=== PATIENT | male | born 1950 | race Caucasian/White ===

== ENCOUNTER 2021-11-19 18:35 | Inpatient (IN) | payer MEDICARE ==
[~2021-11-19] VITALS: Ht 170.2 cm; Wt 66.2 kg
[2021-11-19] MEDS ORDERED: KETOROLAC TROMETHAMINE 30 MG/ML VIAL IV STA (18:39)
[2021-11-19] MEDS ORDERED: ONDANSETRON HCL INJ 2MG/ML 2ML 2 MG/ML VIAL IV STA (18:39)
[2021-11-19 19:13] LABS: BASOPHILS % 0.2 % (0.0-1.0); EOSINOPHILS # (AUTO) 0.1 (0.0-0.4); EOSINOPHILS % 1.3 % (0.0-6.0); HEMATOCRIT 38.8 % (38.2-49.6); HEMOGLOBIN 12.8 g/dL (14.0-18.0); LYMPHOCYTES # (AUTO) 0.9 (1.0-3.2); LYMPHOCYTES % 14.8 % (18.0-39.1); MEAN CORPUSCULAR HEMOGLOBIN 31.6 pg (28-32); MEAN CORPUSCULAR VOLUME 95.8 fL (81-99); MONOCYTES # (AUTO) 0.8 (0.2-0.8); MONOCYTES % 12.3 % (4.4-11.3); NEUTROPHILS # (AUTO) 4.5 (2.1-6.9); NEUTROPHILS % 71.2 % (38.7-80.0); PLATELET COUNT 201 x10e3/uL (140-360); RED BLOOD COUNT 4.05 x10e6/uL (4.3-5.7); RED CELL DISTRIBUTION WIDTH 12.2 % (11.7-14.4)
[2021-11-19 19:31] LABS: ALBUMIN 3.7 g/dL (3.5-5.0); ALBUMIN/GLOBULIN RATIO 0.9 (0.8-2.0); CALCIUM 9.1 mg/dL (8.4-10.2); CREATININE, SERUM 3.53 mg/dL (0.72-1.25)
[2021-11-19 19:53] LABS: CLARITY,URINE CLEAR (CLEAR); COLOR,URINE YELLOW (YELLOW); LEUKOCYTE ESTERASE ,URINE NEGATIVE (NEGATIVE); NITRITE,URINE NEGATIVE (NEGATIVE); PROTEIN,URINE DIPSTICK 1+ (NEGATIVE)
[2021-11-19 19:54] LABS: KETONES,URINE 2+ (NEGATIVE); URINE UROBILINOGEN 0.2 mg/dL (0.2 - 1)
[2021-11-19 20:04] LABS: BACTERIA,URINE MODERATE /HPF
[2021-11-19] MEDS: SODIUM CHLORIDE 0.9% 1000ML 1,000 ML IV SCH ×2 (20:17→20:34)
[2021-11-19] MEDS ORDERED: CLONIDINE HCL 0.1 MG TAB ONE (20:31)
[2021-11-19 20:32] LABS: BILIRUBIN,DIRECT 0.3 mg/dL (0.0-0.5)
[2021-11-19] MEDS: CLONIDINE HCL 0.1 MG TAB PO PRN (20:35)
[2021-11-19] MEDS: TAMSULOSIN HCL 0.4 MG CAP PO SCH (21:00)
[2021-11-19] MEDS ORDERED: CLONIDINE HCL 0.1 MG TAB PO SCH (21:00)
[2021-11-19 21:30] VITALS: BP 178/75
[2021-11-20] VITALS (9 sets, daily range): BP systolic 145–235; BP diastolic 68–91
[2021-11-20] MEDS ORDERED: CARVEDILOL12.5 MG PO (01:22)
[2021-11-20] MEDS ORDERED: DIOVAN160 MG PO (01:23)
[2021-11-20] MEDS ORDERED: HYDROCHLOROTH12.5 MG PO (01:28)
[2021-11-20] MEDS ORDERED: PLAVIX75 MG PO (01:30)
[2021-11-20] MEDS ORDERED: ACETAMINOPHEN/COD PO (01:41)
[2021-11-20] MEDS ORDERED: TAMSULOSIN PO (01:41)
[2021-11-20] MEDS: Morphine 4mg INJECTION 4 MG/ML INJ IV PRN ×2 (03:35→10:52)
[2021-11-20] MEDS: ONDANSETRON HCL INJ 2MG/ML 2ML 2 MG/ML VIAL IV PRN ×2 (03:37→10:51)
[2021-11-20 05:00] LABS: BASOPHILS % 0.2 % (0.0-1.0); EOSINOPHILS # (AUTO) 0.1 (0.0-0.4); EOSINOPHILS % 1.9 % (0.0-6.0); HEMATOCRIT 37.6 % (38.2-49.6); HEMOGLOBIN 12.1 g/dL (14.0-18.0); LYMPHOCYTES # (AUTO) 0.8 (1.0-3.2); LYMPHOCYTES % 15.6 % (18.0-39.1); MEAN CORPUSCULAR HEMOGLOBIN 30.6 pg (28-32); MEAN CORPUSCULAR HGB CONC 32.2 g/dL (31-35); MEAN CORPUSCULAR VOLUME 95.2 fL (81-99); MONOCYTES # (AUTO) 0.7 (0.2-0.8); MONOCYTES % 13.7 % (4.4-11.3); NEUTROPHILS # (AUTO) 3.6 (2.1-6.9); NEUTROPHILS % 68.2 % (38.7-80.0); PLATELET COUNT 179 x10e3/uL (140-360); RED BLOOD COUNT 3.95 x10e6/uL (4.3-5.7); RED CELL DISTRIBUTION WIDTH 12.2 % (11.7-14.4)
[2021-11-20 05:22] LABS: ANION GAP 21.2 mmol/L (8-16); CALCIUM 8.3 mg/dL (8.4-10.2); CREATININE, SERUM 3.02 mg/dL (0.72-1.25); POTASSIUM 4.2 mmol/L (3.5-5.1)
[2021-11-20] MEDS ORDERED: VALSARTAN 160 MG TAB PO SCH (09:00)
[2021-11-20] MEDS: CLONIDINE HCL 0.1 MG TAB PO PRN (10:49)
[2021-11-20] MEDS ORDERED: HYDRALAZINE HCL 20 MG/ML VIAL IV PRN (11:15)
[2021-11-20] MEDS ORDERED: METOPROLOL TARTRATE INJ 1 MG/ML VIAL IV ONE (13:00)
[2021-11-20] MEDS: SIMETHICONE 80 MG CHEW PO PRN (16:10)
[2021-11-20] MEDS: SODIUM BICARBONATE 8.4% SYRING 150 ML in DEXTROSE 5% 1,000 ML IV SCH (16:10)
[2021-11-20] MEDS: KETOROLAC TROMETHAMINE 30 MG/ML VIAL IV PRN (16:10)
[2021-11-20] MEDS: NIFEDIPINE CR 30 MG TAB PO SCH (16:14)
[2021-11-20] MEDS: TAMSULOSIN HCL 0.4 MG CAP PO SCH (20:55)
[2021-11-21] VITALS (9 sets, daily range): BP systolic 128–149; BP diastolic 57–73
[2021-11-21] MEDS: SODIUM BICARBONATE 8.4% SYRING 150 ML in DEXTROSE 5% 1,000 ML IV SCH ×2 (04:53→14:58)
[2021-11-21] MEDS: KETOROLAC TROMETHAMINE 30 MG/ML VIAL IV PRN (04:54)
[2021-11-21] MEDS: SIMETHICONE 80 MG CHEW PO PRN ×2 (04:56→17:56)
[2021-11-21] MEDS: NIFEDIPINE CR 30 MG TAB PO SCH ×2 (09:25→17:56)
[2021-11-21] MEDS: ALLOPURINOL 300 MG TAB PO SCH (11:47)
[2021-11-21] MEDS: TAMSULOSIN HCL 0.4 MG CAP PO SCH (20:47)
[2021-11-22] VITALS: BP 128/57
[2021-11-22 04:00] VITALS: BP 126/52
[2021-11-22] MEDS: SIMETHICONE 80 MG CHEW PO PRN (05:11)
[2021-11-22] MEDS: KETOROLAC TROMETHAMINE 30 MG/ML VIAL IV PRN (05:15)
[2021-11-22 05:37] LABS: ALBUMIN 3.1 g/dL (3.5-5.0); ALBUMIN/GLOBULIN RATIO 0.8 (0.8-2.0); ANION GAP 17.1 mmol/L (8-16); CALCIUM 8.3 mg/dL (8.4-10.2); CREATININE, SERUM 2.36 mg/dL (0.72-1.25); POTASSIUM 3.1 mmol/L (3.5-5.1)
[2021-11-22] MEDS ORDERED: IOPAMIDOL 610MG/1ML 300 MG/ML VIAL IV ONE (07:09)
[2021-11-22] MEDS ORDERED: CEFTRIAXONE 1 GM VIAL ONE (07:26)
[2021-11-22] MEDS: SODIUM BICARBONATE 8.4% SYRING 150 ML in DEXTROSE 5% 1,000 ML IV SCH (09:23)
[2021-11-22] MEDS: NIFEDIPINE CR 30 MG TAB PO SCH (09:29)
[2021-11-22] MEDS: ALLOPURINOL 300 MG TAB PO SCH (09:29)
[2021-11-22 09:41] VITALS: BP 132/54
[2021-11-22] MEDS ORDERED: POTASSIUM CHLORIDE 20 MEQ TAB CR PO ONE (11:30)
[2021-11-22 12:55] VITALS: BP 122/56
[2021-11-22] MEDS ORDERED: POVIDONE IODINE 0.05% 0.05 % ML PO ONE (15:30)
[2021-11-22] MEDS ORDERED: PROPOFOL IV EMULSION 10 MG/ML 20 ML VIAL ONE (15:30)
[2021-11-22] MEDS ORDERED: SEVOFLURANE INHAL SOLN 250 ML PEN BTL ONE (15:30)
[2021-11-22] MEDS ORDERED: LIDOCAINE HCL 2% LOCAL INJ 5 ML SDV VIAL INJ ONE (15:30)
[2021-11-22] MEDS ORDERED: DEXAMETHASONE SOD PHOS INJ 4 MG/ML SDV ONE (15:30)
[2021-11-22] MEDS ORDERED: ONDANSETRON HCL INJ 2MG/ML 2ML 2 MG/ML VIAL ONE (15:30)
== END 2021-11-22 15:00 | disposition home or self-care (01) | DRG 660 ==
LOC: ER 19:00 → ERHOLD 19:57 → MED/SURG 21:32 → OBSVTOIN 11-22 08:53
PROC: 0T778DZ Dilation of Left Ureter with Intraluminal Device, Via Natural or Artificial Opening Endoscopic (ICD-10-PCS; principal; 2021-11-22 07:16)
DX: N20.1 Calculus of ureter (principal); N17.9 Acute kidney failure, unspecified; N40.0 Benign prostatic hyperplasia without lower urinary tract symptoms; I10 Essential (primary) hypertension; I25.10 Atherosclerotic heart disease of native coronary artery without angina pectoris; Z20.822 Contact with and (suspected) exposure to COVID-19; K59.00 Constipation, unspecified
CPT/HCPCS: 36415; 74018; 74420; 76770; 80048; 80053; 80076; 81001; 81050; 82310; 82507; 82575; 82948; 83690; 83945; 83970; 84156; 84550; 85025; 94799; 99284; C1758; C1766; C1769; C2617; G0378; J0360; J0696; J1100; J1885; J2001; J2185; J2270; J2405; J7030; J7070